=== PATIENT | female | born 1955 | race Caucasian/White ===

== ENCOUNTER → 2016-03-27 | Outpatient (CLI) | payer OTHER ==
[~2016-03-27] MED LIST: PRIL10CA PO
[2016-03-27 17:52] LABS: ANION GAP 9 MEQ/L (5-15); BICARBONATE 27.5 MEQ/L (21.0-32.0); BLOOD UREA NITROGEN 14 MG/DL (7-18); CHLORIDE 98 MEQ/L (98-107); GLOMERULAR FILTRATION RATE 78 ML/MIN (>89); SODIUM (NA) 134 MEQ/L (136-145)
[2016-03-27 20:04] LABS: HEMOGLOBIN A1a 1.5 %; HEMOGLOBIN Ao 78.3 %; HEMOGLOBIN F 1.9 %; HEMOGLOBIN LA1C 2.6 %; HEMOGLOBIN P3 4.6 %
== END ==
LOC: PLAB 15:33
DX: E11.65 Type 2 diabetes mellitus with hyperglycemia (principal)
CPT/HCPCS: 80048; 83036

== ENCOUNTER → 2016-08-29 | Outpatient (CLI) | payer OTHER ==
[2016-08-29 16:07] LABS: ANION GAP 9 MEQ/L (5-15); BICARBONATE 26.2 MEQ/L (21.0-32.0); BLOOD UREA NITROGEN 13 MG/DL (7-18); CHLORIDE 103 MEQ/L (98-107); GLOMERULAR FILTRATION RATE 87 ML/MIN (>89); GLUCOSE,FASTING 139 MG/DL (74-99); POTASSIUM 4.1 MEQ/L (3.5-5.1); SODIUM (NA) 138 MEQ/L (136-145)
[2016-08-29 18:41] LABS: HEMOGLOBIN A1a 1.4 %; HEMOGLOBIN A1b 0.9 %; HEMOGLOBIN Ao 82.2 %; HEMOGLOBIN F 1.5 %; HEMOGLOBIN LA1C 2.3 %
== END ==
LOC: PLAB 11:32
DX: E11.65 Type 2 diabetes mellitus with hyperglycemia (principal)
CPT/HCPCS: 80048; 83036

== ENCOUNTER → 2017-03-19 | Outpatient (CLI) | payer OTHER ==
[2017-03-19 17:21] LABS: BICARBONATE 30.1 MEQ/L (21.0-32.0); BLOOD UREA NITROGEN 9 MG/DL (7-18); CHLORIDE 101 MEQ/L (98-107); CREATININE 0.73 MG/DL (0.50-1.00); GLOMERULAR FILTRATION RATE 82 ML/MIN (>89); GLUCOSE,FASTING 265 MG/DL (74-99); SODIUM (NA) 135 MEQ/L (136-145)
[2017-03-19 17:22] LABS: CHOLESTEROL 133 MG/DL (120-200)
[2017-03-19 17:25] LABS: CHOLESTEROL/ HDL RATIO 2.24 RATIO; HDL CHOLESTEROL 59.2 MG/DL (40.0-60.0); LDL CHOLESTEROL 60 MG/DL (0-99); TRIGLYCERIDES 67 MG/DL (42-150)
[2017-03-20 16:47] LABS: HEMOGLOBIN A1C 7.9 % (4.3-6.0)
== END ==
LOC: PLAB 14:47
DX: E11.65 Type 2 diabetes mellitus with hyperglycemia (principal)
CPT/HCPCS: 36415; 80048; 80061; 82043; 83036; 84681